=== PATIENT | female | born 1955 | race African-American/Black ===

== ENCOUNTER → 2017-03-15 | Outpatient (CLI) | payer OTHER ==
[~2017-03-15] MED LIST: ALPRAZOLAM 0.50.5 M1 PO; AMLODIPINE-BEN1 EACH PO; CELEXA20 MG PO; CENTRUM SILVER1 EAC4 PO; CITALOPRAM PO; ESZOPICLONE3 MG PO; FLEXERIL PO; IRON325 PO; TRAMADOL 50 MG50 MG PO
== END ==
LOC: RAD 13:02
DX: Z12.31 Encounter for screening mammogram for malignant neoplasm of breast (principal)

== ENCOUNTER → 2019-05-28 | Outpatient (CLI) | payer OTHER | LOC: BC 12:28 | DX: Z12.31 Encounter for screening mammogram for malignant neoplasm of breast (principal) ==